=== PATIENT | male | born 1990 | race Two or more races ===

== ENCOUNTER 2020-07-04 21:55 | Emergency (ER) | payer OTHER ==
[~2020-07-04] VITALS: Ht 172.7 cm; Wt 76.5 kg
--- NOTE | 2020-07-04 22:20 | NUR ---
CC OF STERNUM PAIN THAT RADIAES TO JAW AND DOWN ARMS/LEGS WITH ASSOCIATED NUMBNESS/TINGLING AND POOR CIRCULATION TO FEET. PT STATES HE ALSO SOMETIMES HAS PAIN AND BURNING IN PENIS AND ANXIETY.
[2020-07-04 22:46] LABS: MICROSCOPIC NOT IND
[2020-07-04 22:53] LABS: BASOPHILS % (AUTO) 1 % (0-1); EOSINOPHILS % (AUTO) 1 % (1-7); LYMPHOCYTES % (AUTO) 31 % (22-44); MEAN CORPUSCULAR HGB CONC 35.5 g/dL (33.2-36.2); MEAN PLATELET VOLUME 7.4 fL (7.4-10.4); MONOCYTES % (AUTO) 5 % (2-9); NEUTROPHILS % (AUTO) 63 % (42-75); PLATELET COUNT 289 x10^3/uL (130-400); RED BLOOD COUNT 5.44 x10^6/uL (4.38-5.82); RED CELL DISTRIBUTION WIDTH 11.8 % (9.4-14.8)
[2020-07-04 23:00] LABS: ALANINE AMINOTRANSFERASE 54 U/L (12-78); ANION GAP 7 mmol/L (5-15); CALCIUM 8.9 mg/dL (8.5-10.1); CHLORIDE 109 mmol/L (98-107); CREATININE 0.96 mg/dL (0.7-1.3); MD NO
[2020-07-04 23:02] LABS: ALKALINE PHOSPHATASE 79 U/L (45-117); BILIRUBIN,TOTAL 0.2 mg/dL (0.2-1.0); TOTAL PROTEIN 7.3 g/dL (6.4-8.2)
[2020-07-05 00:23] VITALS: BP 142/73
== END 2020-07-05 00:25 | disposition home or self-care (01) ==
LOC: ED 22:25
DX: R07.89 Other chest pain (principal); R20.2 Paresthesia of skin; R94.31 Abnormal electrocardiogram [ECG] [EKG]
CPT/HCPCS: 36415; 71045; 80053; 81003; 85025; 87491; 87591; 93005; 99285